=== PATIENT | male | born 1970 | race Hispanic/Latino ===

== ENCOUNTER 2019-03-30 18:18 | Emergency (ER) | payer SELFPAY | END 2019-03-30 20:21 | disposition left against medical advice (07) | LOC: ERS 18:18 | DX: Z53.21 Procedure and treatment not carried out due to patient leaving prior to being seen by health care provider (principal) ==

== ENCOUNTER 2019-03-31 19:36 | Emergency (ER) | payer SELFPAY ==
[2019-03-31] MEDS ORDERED: Famotidine 20 MG TAB ONE (20:06)
[2019-03-31] MEDS ORDERED: Dexamethasone 4 mg/ml Vial ONE (20:06)
[2019-03-31] MEDS ORDERED: hydrOXYzine 25 MG TAB PO SCH (20:15)
[2019-03-31] MEDS ORDERED: hydrOXYzine 25 MG TAB ONE (21:02)
== END 2019-03-31 21:00 | disposition home or self-care (01) ==
LOC: ERS 19:36
DX: L23.7 Allergic contact dermatitis due to plants, except food (principal)
CPT/HCPCS: 99283; J1100

== ENCOUNTER 2019-04-22 18:44 | Emergency (ER) | payer SELFPAY ==
[~2019-04-22 18:44] MED LIST: ISOVUE-370 76%-LOCM 1 ML ONE
[2019-04-22] MEDS ORDERED: Fentanyl 100 MCG/2 ML VIAL ONE (19:26)
[2019-04-22] MEDS ORDERED: Ondansetron PF 4 MG/2 ML Vial ONE (19:30)
[2019-04-22 19:44] LABS: Hemoglobin 15.4 g/dL (14.0-18.0); Mean Corpuscular HGB CONC 34.9 g/dL (32.0-36.0); Mean Corpuscular Hemoglobin 31.3 pg (27.0-31.0); Mean Corpuscular Volume 89.7 fL (78.0-98.0); Mean Platelet Volume 7.8 fL (7.4-10.4); Platelet Count 239 thou/uL (130-400); Red Blood Cell (RBC) Count 4.91 mill/uL (4.70-6.10); White Blood Cell (WBC) Count 4.7 thou/uL (4.8-10.8)
[2019-04-22 19:48] LABS: Prothrombin Time 13.2 SEC (12.0-14.7)
[2019-04-22 19:49] LABS: PTT 21.9 SEC (22.9-36.1)
[2019-04-22 20:01] LABS: ALT (SGPT) 24 U/L (8-55); AST (SGOT) 24 U/L (5-34); Albumin 4.4 g/dL (3.5-5.0); Alkaline Phosphatase 86 U/L (40-150); Anion Gap 12 mmol/L (10-20); BUN (Urea Nitrogen) 18 mg/dL (8.9-20.6); Bilirubin, Total 0.5 mg/dL (0.2-1.2); Calc. Creatinine Clearance 0 mL/min (70-130); Calcium 9.3 mg/dL (7.8-10.44); Carbon Dioxide 23 mmol/L (22-29); Chloride 108 mmol/L (98-107); Estimated GFR-MDRD 75; Globulin 2.9 g/dL (2.4-3.5); Glucose 159 mg/dL (70-105); Potassium 3.7 mmol/L (3.5-5.1); Protein, Total 7.3 g/dL (6.0-8.3); Sodium 139 mmol/L (136-145)
--- NOTE | 2019-04-22 20:06 | CT ---
CT head noncontrast HISTORY: Fall. Head injury. FINDINGS: There is acute intracranial hemorrhage or infarct. The ventricles appear normal in size, sh ape and position. There is no mass effect or shift of midline structures. Large scalp injury/swelling at the left parietal level. IMPRESSION: No acute intracranial abnormalities are demonstrated.
--- NOTE | 2019-04-22 20:11 | CT ---
CT OF THE CERVICAL SPINE WITHOUT CONTRAST: 04/22/19 INDICATION: Fall from stool hitting head on a door frame with positive loss of consciousness. Concern for possibl e neck injury. COMPARISON: None. FINDINGS: There is mild disc degenerative disease at C5-C6. No acute fracture or subluxation is evident. Cranio cervical junction is normal appearing. There is a 1 cm hypodensity within the right thyroid gland. Susan ng apices are clear. IMPRESSION: 1. No acute fracture or subluxation is evident. 2. Mild spondylosis of the cervical spine. POS: BH
[2019-04-22 20:16] LABS: Band 2 % (5-11); Eosinophils 10 % (0-10); Lymphocytes 25 % (21-51); MDiff Complete? YES; Monocytes 14 % (0-10); Neutrophil 49 % (42-75); Platelet Morphology Comment Appears Adequate; RBC Morphology Normal
--- NOTE | 2019-04-22 20:24 | CT ---
CT chest with IV contrast CT abdomen and pelvis with IV contrast CT thoracic spine noncontrast CT lumbar spine noncontrast HISTORY: Fall. Chest injury. Abdomen injury. Back injury. FINDINGS: No evidence of pneumothorax or mediastinal hematoma. Mild atelectasis at the lung bases. So lid organs of the abdomen are intact. No free air or free fluid. Diffuse fatty infiltration of the colon without evidence of inflammation. Vertebral body heights of the thoracolumbar spine are maintained. No acute fracture or dislocation. A t the lumbosacral junction, there are bilateral pars interarticularis defects with a chronic appearance. Disc space narrowing and approximately 10% spondylolisthesis. IMPRESSION: No acute traumatic injury is demonstrated. 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
[2019-04-22] MEDS ORDERED: Lidocaine 1% w/Epinephrine 1:100K 20 ML VIAL ONE (21:22)
== END 2019-04-22 23:00 | disposition home or self-care (01) ==
LOC: ERS 18:44
DX: S06.0X9A Concussion with loss of consciousness of unspecified duration, initial encounter (principal); S01.01XA Laceration without foreign body of scalp, initial encounter; R10.817 Generalized abdominal tenderness; E78.5 Hyperlipidemia, unspecified; E78.00 Pure hypercholesterolemia, unspecified; W11.XXXA Fall on and from ladder, initial encounter
CPT/HCPCS: 12001; 36415; 70450; 71260; 72125; 74177; 80053; 82550; 83605; 84484; 85025; 85610; 85730; 93005; 96374; 96375; J2001; J2405; J3010; Q9966

== ENCOUNTER 2019-05-01 09:09 | Emergency (ER) | payer SELFPAY | END 2019-05-01 10:50 | disposition home or self-care (01) | LOC: ERS 09:09 | DX: S01.01XD Laceration without foreign body of scalp, subsequent encounter (principal); E78.00 Pure hypercholesterolemia, unspecified; E78.5 Hyperlipidemia, unspecified ==

== ENCOUNTER 2019-08-02 18:19 | Emergency (ER) | payer SELFPAY | END 2019-08-02 22:40 | disposition left against medical advice (07) | LOC: ERS 18:19 | DX: Z53.21 Procedure and treatment not carried out due to patient leaving prior to being seen by health care provider (principal) ==

== ENCOUNTER 2019-11-23 14:29 | Emergency (ER) | payer SELFPAY ==
[2019-11-23] MEDS ORDERED: Aspirin Chewable 81 MG TAB ONE (14:53)
[2019-11-23] MEDS ORDERED: Mag-Al 1200 mg/1200 mg/30 ML UDCUP ONE (14:53)
[2019-11-23] MEDS ORDERED: Lidocaine Viscous Sol 2% 15 ml UD Cup ONE (14:53)
[2019-11-23 14:56] LABS: #Basophils 0.1 thou/uL (0.0-0.2); #Eosinphils 1.1 thou/uL (0.0-0.7); #Lymphocytes 2.7 thou/uL (1.20-3.40); #Monocytes 0.8 thou/uL (0.11-0.59); #Neutrophils 1.6 thou/uL (1.40-6.50); %Basophils 1.1 % (0.0-1.0); %Eosinophils 17.2 % (0.0-10.0); %Lymphocytes 42.8 % (21.0-51.0); %Monocytes 12.7 % (0.0-10.0); %Neutrophils 26.2 % (42.0-75.0); Hemoglobin 16.2 g/dL (14.0-18.0); Mean Corpuscular HGB CONC 34.6 g/dL (32.0-36.0); Mean Corpuscular Hemoglobin 31.2 pg (27.0-31.0); Mean Corpuscular Volume 90.1 fL (78.0-98.0); Mean Platelet Volume 7.9 fL (7.4-10.4); Platelet Count 297 thou/uL (130-400); RBC Distribution Width 12.8 % (11.5-14.5); Red Blood Cell (RBC) Count 5.19 mill/uL (4.70-6.10); White Blood Cell (WBC) Count 6.2 thou/uL (4.8-10.8)
[2019-11-23 15:25] LABS: ALT (SGPT) 22 U/L (8-55); AST (SGOT) 23 U/L (5-34); Albumin 4.5 g/dL (3.5-5.0); Alkaline Phosphatase 85 U/L (40-110); Anion Gap 13 mmol/L (10-20); BUN (Urea Nitrogen) 14 mg/dL (8.9-20.6); Bilirubin, Total 0.6 mg/dL (0.2-1.2); CK (CPK) 253 U/L (30-200); Calc. Creatinine Clearance 0 mL/min (70-130); Calcium 9.6 mg/dL (7.8-10.44); Carbon Dioxide 25 mmol/L (22-29); Chloride 105 mmol/L (98-107); Estimated GFR-MDRD 67; Globulin 3.5 g/dL (2.4-3.5); Glucose 107 mg/dL (70-105); Potassium 3.8 mmol/L (3.5-5.1); Sodium 139 mmol/L (136-145)
[2019-11-23 17:58] LABS: Troponin I Less than 0.010 ng/mL (< 0.028)
--- NOTE | 2019-11-24 07:14 | RAD ---
Exam: Chest one view HISTORY:Chest pain Comparison: None FINDINGS: Cardiac silhouette: Normal Aorta: Unremarkable Pulmonary vessels: Normal Costophrenic angles: Clear LUNGS: No masses or consolidation. Pneumothorax: None Osseous abnormalities: None IMPRESSION: No acute cardiopulmonary process.
== END 2019-11-23 18:55 | disposition home or self-care (01) ==
LOC: ERS 14:29
DX: K29.00 Acute gastritis without bleeding (principal); R07.89 Other chest pain
CPT/HCPCS: 71045; 80053; 82550; 84484; 85025; 93005

== ENCOUNTER 2021-01-07 03:29 | Emergency (ER) | payer SELFPAY ==
[2021-01-07] MEDS ORDERED: Acetaminophen 500 MG TAB ONE (03:45)
[2021-01-07] MEDS ORDERED: Ibuprofen 800 MG TAB ONE (04:14)
[2021-01-07 05:44] LABS: SARS-CoV-2 NAA Rapid Test DETECTED (NotDetected)
== END 2021-01-07 05:30 | disposition home or self-care (01) ==
LOC: ERS 03:29
DX: U07.1 COVID-19 (principal)
CPT/HCPCS: 0240U; 99283

== ENCOUNTER 2021-01-13 22:18 | Emergency (ER) | payer SELFPAY ==
[2021-01-13] MEDS ORDERED: Ketorolac Tromethamine 30 MG/ML VIAL ONE (23:08)
[2021-01-13] MEDS ORDERED: predniSONE 20 MG TAB ONE (23:08)
[2021-01-13 23:10] LABS: Hemoglobin 14.7 g/dL (14.0-18.0); Mean Corpuscular HGB CONC 34.2 g/dL (32.0-36.0); Mean Corpuscular Hemoglobin 30.4 pg (27.0-31.0); Mean Corpuscular Volume 88.9 fL (78.0-98.0); Mean Platelet Volume 6.9 fL (7.4-10.4); Platelet Count 279 thou/uL (130-400); RBC Distribution Width 12.3 % (11.5-14.5); Red Blood Cell (RBC) Count 4.82 mill/uL (4.70-6.10); White Blood Cell (WBC) Count 4.4 thou/uL (4.8-10.8)
[2021-01-13 23:28] LABS: ALT (SGPT) 46 U/L (8-55); AST (SGOT) 53 U/L (5-34); Albumin 3.6 g/dL (3.5-5.0); Alkaline Phosphatase 70 U/L (40-110); Anion Gap 13 mmol/L (10-20); BUN (Urea Nitrogen) 14 mg/dL (8.9-20.6); Bilirubin, Total 0.8 mg/dL (0.2-1.2); Calc. Creatinine Clearance 0 mL/min (70-130); Calcium 8.7 mg/dL (7.8-10.44); Carbon Dioxide 25 mmol/L (22-29); Chloride 100 mmol/L (98-107); Globulin 3.6 g/dL (2.4-3.5); Glucose 102 mg/dL (70-105); Potassium 4.1 mmol/L (3.5-5.1); Protein, Total 7.2 g/dL (6.0-8.3); Sodium 134 mmol/L (136-145)
[2021-01-13 23:31] LABS: Eosinophils 1 % (0-10); Lymphocytes 20 % (21-51); MDiff Complete? YES; Monocytes 8 % (0-10); Neutrophil 70 % (42-75); Platelet Morphology Comment Appears Adequate; Reactive Lymphocytes 1 % (0-10)
== END 2021-01-14 00:32 | disposition home or self-care (01) ==
LOC: ERS 22:18
DX: B34.2 Coronavirus infection, unspecified (principal)
CPT/HCPCS: 71045; 80053; 83605; 84484; 85025; 86140; 96374; J1885; J7512

== ENCOUNTER 2021-01-17 06:09 | Emergency (ER) | payer SELFPAY ==
[2021-01-17] MEDS ORDERED: Ketorolac Tromethamine 30 MG/ML VIAL ONE (07:18)
== END 2021-01-17 08:45 | disposition home or self-care (01) ==
LOC: ERS 06:09
DX: I82.4Z2 Acute embolism and thrombosis of unspecified deep veins of left distal lower extremity (principal)
CPT/HCPCS: 96372; J1885

== ENCOUNTER 2021-01-23 23:59 | Emergency (ER) | payer SELFPAY ==
[2021-01-24 02:11] LABS: Hemoglobin 14.8 g/dL (14.0-18.0); Mean Corpuscular HGB CONC 34.2 g/dL (32.0-36.0); Mean Corpuscular Hemoglobin 30.6 pg (27.0-31.0); Mean Corpuscular Volume 89.3 fL (78.0-98.0); Mean Platelet Volume 6.6 fL (7.4-10.4); Platelet Count 525 thou/uL (130-400); RBC Distribution Width 12.3 % (11.5-14.5); Red Blood Cell (RBC) Count 4.83 mill/uL (4.70-6.10); White Blood Cell (WBC) Count 7.8 thou/uL (4.8-10.8)
[2021-01-24] MEDS ORDERED: Ketorolac Tromethamine 30 MG/ML VIAL ONE (02:11)
[2021-01-24 02:26] LABS: Band 6 % (5-11); Eosinophils 7 % (0-10); Lymphocytes 24 % (21-51); MDiff Complete? YES; Monocytes 17 % (0-10); Neutrophil 46 % (42-75); Platelet Morphology Comment Appears Increased
[2021-01-24 02:32] LABS: ALT (SGPT) 66 U/L (8-55); AST (SGOT) 22 U/L (5-34); Albumin 3.7 g/dL (3.5-5.0); Alkaline Phosphatase 93 U/L (40-110); Anion Gap 10 mmol/L (10-20); BUN (Urea Nitrogen) 13 mg/dL (8.9-20.6); Bilirubin, Total 0.3 mg/dL (0.2-1.2); Calc. Creatinine Clearance 0 mL/min (70-130); Calcium 9.1 mg/dL (7.8-10.44); Carbon Dioxide 27 mmol/L (22-29); Chloride 103 mmol/L (98-107); Globulin 3.6 g/dL (2.4-3.5); Glucose 115 mg/dL (70-105); Potassium 4.4 mmol/L (3.5-5.1); Protein, Total 7.3 g/dL (6.0-8.3); Sodium 136 mmol/L (136-145)
[2021-01-24] MEDS ORDERED: Iopamidol-370 76% 500 ML 1 ML ONE (10:16)
== END 2021-01-24 04:24 | disposition home or self-care (01) ==
LOC: ERS 23:59
DX: M79.605 Pain in left leg (principal); B97.29 Other coronavirus as the cause of diseases classified elsewhere; Z79.52 Long term (current) use of systemic steroids; Z79.01 Long term (current) use of anticoagulants
CPT/HCPCS: 71275; 80053; 84484; 85025; 93005; 96374; J1885; Q9967

== ENCOUNTER 2021-03-19 11:02 | Observation (INO) | payer SELFPAY ==
[2021-03-19 11:33] LABS: #Basophils 0.1 thou/uL (0.0-0.2); #Eosinphils 1.6 thou/uL (0.0-0.7); #Lymphocytes 2.4 thou/uL (1.20-3.40); #Monocytes 0.8 thou/uL (0.11-0.59); #Neutrophils 3.1 thou/uL (1.40-6.50); %Eosinophils 19.7 % (0.0-10.0); %Monocytes 10.1 % (0.0-10.0); %Neutrophils 39.2 % (42.0-75.0); Hemoglobin 15.1 g/dL (14.0-18.0); Mean Corpuscular HGB CONC 33.5 g/dL (32.0-36.0); Mean Corpuscular Hemoglobin 30.3 pg (27.0-31.0); Mean Corpuscular Volume 90.6 fL (78.0-98.0); Mean Platelet Volume 7.9 fL (7.4-10.4); Platelet Count 313 thou/uL (130-400); RBC Distribution Width 13.7 % (11.5-14.5); Red Blood Cell (RBC) Count 4.98 mill/uL (4.70-6.10); White Blood Cell (WBC) Count 7.9 thou/uL (4.8-10.8)
[2021-03-19 11:55] LABS: ALT (SGPT) 34 U/L (8-55); AST (SGOT) 29 U/L (5-34); Albumin 4.4 g/dL (3.5-5.0); Alkaline Phosphatase 89 U/L (40-110); Anion Gap 9 mmol/L (10-20); BUN (Urea Nitrogen) 14 mg/dL (8.9-20.6); Bilirubin, Total 0.5 mg/dL (0.2-1.2); Calc. Creatinine Clearance 0 mL/min (70-130); Calcium 9.6 mg/dL (7.8-10.44); Carbon Dioxide 28 mmol/L (22-29); Chloride 103 mmol/L (98-107); Globulin 3.3 g/dL (2.4-3.5); Glucose 112 mg/dL (70-105); Potassium 4.2 mmol/L (3.5-5.1); Protein, Total 7.7 g/dL (6.0-8.3); Sodium 136 mmol/L (136-145)
[2021-03-19 12:23] LABS: Acetaminophen Less than 6.0 mcg/mL (10.0-30.0); Alcohol Less than 10 mg/dL (Less than 10); CK (CPK) 159 U/L (30-200); Salicylate Less than 8.0 mg/dL (15.0-30.0)
[2021-03-19] MEDS ORDERED: Aspirin Chewable 81 MG TAB ONE (12:33)
[2021-03-19 12:39] LABS: PTT 26.6 sec (22.9-36.1); Prothrombin Time 12.9 sec (12.0-14.7)
[2021-03-19] MEDS ORDERED: Iopamidol-370 76% 500 ML 1 ML ONE (13:44)
[2021-03-19 14:06] LABS: Bilirubin Negative (Negative); Blood, Urine Negative (Negative); Clarity Clear (Clear); Glucose, Urine (Dipstick) Normal (Negative); Ketone, Urine Negative (Negative); Leukocyte Negative Leu/uL (Negative); Nitrite Negative (Negative); Protein, Urine (Dipstick) Negative (Neg-Trace); Specific Gravity, Urine 1.022 (1.002-1.036); Urobilinogen Normal mg/dL (Less than 2)
[2021-03-19 14:15] LABS: Amphetamine Not Detected (NotDetected); Barbiturates Screen Not Detected (NotDetected); Benzodiazepine Screen Not Detected (NotDetected); Cocaine Metabolite Screen Not Detected (NotDetected); Methadone Not Detected (NotDetected); Methamphetamine Not Detected (NotDetected); Opiate Screen Not Detected (NotDetected); Oxycodone Screen Not Detected (NotDetected); Phencyclidine (PCP) Not Detected (NotDetected); THC/Cannabinoid Screen Not Detected (NotDetected); Tricyclic Screen Not Detected (NotDetected)
[2021-03-19] MEDS ORDERED: Apixaban 5 MG TAB PO SCH (14:30)
[2021-03-19] MEDS ORDERED: Nitroglycerin 4.9 GM Bottle SL PRN (15:12)
[2021-03-19] MEDS ORDERED: Nitroglycerin 0.4 MG TAB 1 EACH ONE (19:14)
[2021-03-19] MEDS ORDERED: Atorvastatin Calcium 40 MG TAB PO SCH (21:00)
[2021-03-19] MEDS: Apixaban 5 MG TAB PO SCH (22:05)
[2021-03-19 22:09] VITALS: BMI 28.5
[2021-03-20 05:22] LABS: Hemoglobin A1c 5.4 % (4.0-6.0)
[2021-03-20] MEDS ORDERED: Sodium Chloride 0.9% 1,000 ML IV SCH (08:00)
[2021-03-20] MEDS ORDERED: ADENOSINE 60 MG/20 ML VIAL ONE (08:45)
[2021-03-20] MEDS ORDERED: Aspirin 81 mg Enteric Coated Tablet PO SCH (09:00)
[2021-03-20] MEDS: Apixaban 5 MG TAB PO SCH (10:16)
[2021-03-20 15:39] VITALS: TEMP 98.3
[2021-03-20] MEDS ORDERED: Cyclobenzaprine 10 MG TAB PO PRN ×2 (15:59→17:08)
[2021-03-20] MEDS ORDERED: Dexamethasone 10 MG in Sodium Chloride 0.9% 50 ML IVPB SCH (16:00)
[2021-03-20] MEDS ORDERED: Iopamidol 370 76% 100 ML VIAL ONE (16:15)
[2021-03-20] MEDS ORDERED: Dexamethasone 10 MG/ML VIAL SLOW IVP SCH (17:00)
[2021-03-20] MEDS ORDERED: Amlodipine 5 MG TAB PO SCH (17:00)
[2021-03-20 17:06] LABS: Cardiac Risk 5.2 (Less than 4.5)
[2021-03-20 19:17] VITALS: BP 126/79
[2021-03-21] MEDS ORDERED: Amlodipine 5 MG TAB PO SCH (09:00)
== END 2021-03-20 19:04 | disposition home or self-care (01) ==
LOC: ERS 11:02 → ERHOLD 13:33 → 2SE 20:36
PROVIDERS: ADMIT Internal Medicine; ATTEND Internal Medicine
DX: R20.0 Anesthesia of skin (principal); R07.9 Chest pain, unspecified; R20.2 Paresthesia of skin; M54.2 Cervicalgia; M48.02 Spinal stenosis, cervical region; M54.12 Radiculopathy, cervical region; M85.80 Other specified disorders of bone density and structure, unspecified site; Z86.16 Personal history of COVID-19; Z86.718 Personal history of other venous thrombosis and embolism; Z88.5 Allergy status to narcotic agent
CPT/HCPCS: 36415; 70496; 70498; 70551; 71045; 71275; 72141; 78452; 80053; 80061; 80306; 80307; 81003; 82550; 83036; 83690; 84443; 84484; 85025; 85610; 85730; 93005; 93017; 93970; 96374; A9500; G0378; J0153; J1100; Q9967

== ENCOUNTER 2021-04-14 22:59 | Emergency (ER) | payer SELFPAY ==
[2021-04-14] MEDS ORDERED: Orphenadrine Citrate 60 MG/2 ML VIAL IM SCH (23:30)
[2021-04-14] MEDS ORDERED: Ketorolac Tromethamine 30 MG/ML VIAL ONE (23:39)
== END 2021-04-15 00:31 | disposition home or self-care (01) ==
LOC: ERS 22:59
DX: M54.12 Radiculopathy, cervical region (principal); Z86.16 Personal history of COVID-19
CPT/HCPCS: 93005; 96372; J1885; J2360

== ENCOUNTER 2022-11-13 23:19 | Emergency (ER) | payer SELFPAY ==
[2022-11-13 23:58] LABS: #Basophils 0.1 thou/uL (0.0-0.2); #Eosinphils 0.9 thou/uL (0.0-0.7); #Monocytes 0.7 thou/uL (0.11-0.59); #Neutrophils 2.6 thou/uL (1.40-6.50); %Basophils 0.7 % (0.0-1.0); %Eosinophils 12.7 % (0.0-10.0); %Lymphocytes 41.3 % (21.0-51.0); %Monocytes 9.7 % (0.0-10.0); %Neutrophils 35.6 % (42.0-75.0); Hemoglobin 13.9 g/dL (14.0-18.0); Mean Corpuscular HGB CONC 33.5 g/dL (32.0-36.0); Mean Corpuscular Hemoglobin 26.9 pg (27.0-31.0); Mean Corpuscular Volume 80.3 fl (78.0-98.0); Mean Platelet Volume 8.1 fL (7.4-10.4); Platelet Count 294 10x3/uL (130-400); RBC Distribution Width 14.5 % (11.5-14.5); Red Blood Cell (RBC) Count 5.18 mill/uL (4.70-6.10); White Blood Cell (WBC) Count 7.3 10x3/uL (4.8-10.8)
[2022-11-14 00:22] LABS: ALT (SGPT) 27 U/L (8-55); AST (SGOT) 24 U/L (5-34); Albumin 4.3 g/dL (3.5-5.0); Alkaline Phosphatase 88 U/L (40-110); Anion Gap 14 mmol/L (10-20); BUN (Urea Nitrogen) 17 mg/dL (8.4-25.7); Bilirubin, Total 0.6 mg/dL (0.2-1.2); Calc. Creatinine Clearance 0 mL/min (70-130); Calcium 9.6 mg/dL (7.8-10.44); Carbon Dioxide 23 mmol/L (22-29); Chloride 105 mmol/L (98-107); Estimated GFR 79; Globulin 3.5 g/dL (2.4-3.5); Glucose 97 mg/dL (70-105); Lipase 63 U/L (8-78); Potassium 3.9 mmol/L (3.5-5.1); Protein, Total 7.8 g/dL (6.0-8.3); Sodium 138 mmol/L (136-145)
[2022-11-14] MEDS ORDERED: Ketorolac Tromethamine 30 MG/ML VIAL ONE (01:14)
[2022-11-14] MEDS ORDERED: Aspirin Chewable 81 MG TAB ONE (01:14)
== END 2022-11-14 03:05 | disposition home or self-care (01) ==
LOC: ERS 23:19
DX: R07.9 Chest pain, unspecified (principal)
CPT/HCPCS: 36415; 71045; 71275; 80053; 83690; 84484; 85025; 93005; 96374; J1885